=== PATIENT | male | born 1965 | race Caucasian/White ===

== ENCOUNTER → 2023-09-04 12:21 | Outpatient (REF) | payer BC, SELFPAY | LOC: PAVMRI 12:21 | PROVIDERS: ATTENDING PHYSICIAN Psychiatry & Neurology Neurology | DX: R41.3 Other amnesia (principal); R42 Dizziness and giddiness; S00.80XS Unspecified superficial injury of other part of head, sequela | CPT/HCPCS: 70544; 70547; 70553; A9575 ==

== ENCOUNTER → 2023-10-16 20:21 | Outpatient (REF) | payer BC, SELFPAY | LOC: MRI 3T 20:21 | PROVIDERS: ATTENDING PHYSICIAN Psychiatry & Neurology Neurology; FAMILY PHYSICIAN Physician Assistant Medical | DX: D35.2 Benign neoplasm of pituitary gland (principal) | CPT/HCPCS: 70553; A9575 ==